=== PATIENT | female | born 1945 | race Caucasian/White ===

== ENCOUNTER 2018-09-14 10:13 | Inpatient (IN) | payer MEDICARE ==
[~2018-09-14] VITALS: Ht 160 cm; Wt 48.2 kg
[2018-09-14] MEDS ORDERED: SODIUM CHLORIDE FLUSH 10ML SYR IVF ONE (11:00)
--- NOTE | 2018-09-14 11:00 | NUR ---
PT PLACED ON HEART MONITOR, BP CUFF, PULSE OX. RHYTHM ST, RATED OF 90S INITIALLY. DURING ASSESSMENT, TWO RUNS OF SVT APPEARING RHYTHM, RATE 130S THEN 160S OBSERVED. PRINTOUT OBTAINED FROM MONITOR AND PROVIDED TO ERP. PT DENIES MED HX, TAKES NO MEDS, STATES SHE HASN'T BEEN ABLE TO GET AN MD TO ACCEPT WITH HER MEDICARE INSURANCE. PT WITH INCREASED SOB FOR "WEEKS OR MORE", WORSENING TODAY WHICH IS WHY SHE CAME TO ED. PT REPORTS OF SOME RECENT SWELLING TO FEET, RASH TO L BREAST. LE EDEMA WORSE ON LEFT 2+PITTING, 1+ ON RIGHT. CLUBBING NOTED TO BILATERAL FINGERS. RASH WITH GROWTHS TO L BREAST. HARD MASS APPROX SIZE OF ORANGE PALPATED WITH REDNESS, BRUISING SURROUNDING. GROWTH FORMATION TO LATERAL INFERIOR ASPECT OF BREAST. PT DENIES PAIN OR DRAINAGE. Addendum: 09/14/18 at 1122 by VISH IV PLACED TO R FOREARM, UNABLE TO DRAW LABS BUT FLUSHES WELL WITH NS.
[2018-09-14 11:41] LABS: BASOPHILS # (AUTO) 0.02 x10^3/uL (0-0.1); BASOPHILS % (AUTO) 0 % (0-1); EOSINOPHILS % (AUTO) 0 % (1-7); LYMPHOCYTES # (AUTO) 0.77 x10^3/uL (1-3.4); LYMPHOCYTES % (AUTO) 12 % (22-44); MD NO; MEAN CORPUSCULAR HGB CONC 31.9 g/dL (32.4-35.8); MEAN CORPUSCULAR VOLUME 100.4 fL (80-100); MEAN PLATELET VOLUME 7.3 fL (7.4-10.4); MONOCYTES % (AUTO) 9 % (2-9); NEUTROPHILS # (AUTO) 5.09 x10^3/uL (1.8-6.8); NEUTROPHILS % (AUTO) 79 % (42-75); PLATELET COUNT 411 x10^3/uL (130-400); RED CELL DISTRIBUTION WIDTH 14.7 % (9.6-15.2)
[2018-09-14 11:52] LABS: INTERNATIONAL NORMALIZED RATIO 1.1 (0.93-1.1); PROTHROMBIN TIME 11.5 Seconds (9.6-11.5)
[2018-09-14 11:53] LABS: ALBUMIN 2.7 g/dL (3.4-5.0); ANION GAP 6 mmol/L (5-15); CALCIUM 8.9 mg/dL (8.5-10.1); CHLORIDE 98 mmol/L (98-107)
[2018-09-14 12:06] LABS: ALANINE AMINOTRANSFERASE 11 U/L (12-78); ALKALINE PHOSPHATASE 105 U/L (45-117); BILIRUBIN,TOTAL 0.7 mg/dL (0.2-1.0); CREATININE 0.75 mg/dL (0.55-1.02); TOTAL PROTEIN 6.7 g/dL (6.4-8.2)
--- NOTE | 2018-09-14 12:10 | NUR ---
PT UP TO BR WITH SBA. ADD ON CTA ORDERED, PT UPDATED.
[2018-09-14 12:24] LABS: FREE T4 (FREE THYROXINE) 1.25 ng/dL (0.76-1.46)
--- NOTE | 2018-09-14 12:40 | NUR ---
PT TO CT
--- NOTE | 2018-09-14 12:51 | NUR ---
PT BACK FROM CT.
[2018-09-14] MEDS ORDERED: OMNIPAQUE 350 MG/ML, 100ML BOTTLE ONE (12:55)
[2018-09-14] MEDS ORDERED: DIGOXIN 0.25 MG/ML, 2ML ONE (13:16)
--- NOTE | 2018-09-14 13:26 | NUR ---
PT CONTINUES TO HAVE INTERMITTENT RUNS OF FAST HEART RATE UP TO 160S AND THEN USUALLY DECREASES WITHIN SECONDS TO ST, RATE 90S. DIGOXIN GIVEN PER ORDER. PT UPDATED ON POC INCLUDING HOLD IN ER WHILE AWAITING TELE BED. PT OFFERED HOSPITAL BED, WHICH SHE ACCEPTS AT THIS TIME. CALL LIGHT WITHIN REACH.
[2018-09-14] MEDS ORDERED: DIGOXIN 0.25 MG/ML, 2ML IVPush ONE (13:30)
[2018-09-14] MEDS ORDERED: GUAIFENESIN/DM 200-20MG, 10ML UDC PO PRN (13:30)
[2018-09-14] MEDS ORDERED: LIDODERM 5% PATCH TD PRN (13:30)
[2018-09-14] MEDS ORDERED: hydrALAzine 20 MG/ML, 1ML IVPush PRN (13:30)
[2018-09-14] MEDS ORDERED: ONDANSETRON ODT 4 MG PO PRN (13:30)
[2018-09-14] MEDS ORDERED: LABETALOL 5MG/ML, 20ML IVPush PRN (13:30)
[2018-09-14] MEDS ORDERED: MAGNESIUM SULFATE PMX 2GM/50ML 50 ML IV ONE (13:30)
[2018-09-14] MEDS ORDERED: DOCUSATE 100 MG CAPSULE PO PRN (13:30)
[2018-09-14] MEDS ORDERED: ACETAMINOPHEN 325 MG TABLET PO PRN (13:30)
[2018-09-14 14:08] LABS: TROPONIN I 0.023 ng/mL (0.000-0.045)
[2018-09-14] MEDS ORDERED: METOPROLOL TARTRATE 50 MG TABLET ONE (14:20)
[2018-09-14 14:21] LABS: HEMOGLOBIN A1C 6.6 % (4.2-6.3)
[2018-09-14] MEDS ORDERED: MAGNESIUM SULFATE PMX 2GM/50ML 50 ML ONE (14:21)
[2018-09-14] MEDS ORDERED: LIDOCAINE-MPF 1%, 5ML ONE ×2 (14:27→14:30)
[2018-09-14] MEDS: METOPROLOL TARTRATE 25 MG TABLET PO SCH ×2 (14:29→21:37)
--- NOTE | 2018-09-14 15:17 | NUR ---
THORACENTESIS AND BREAST BIOPSY AT BS WITH RADIOLOGIST.
--- NOTE | 2018-09-14 15:34 | NUR ---
PT RESTING QUIETLY. CONTINUE TO AWAIT ADMIT BED. CARDIAC MEAL TRAY ORDERED.
[2018-09-14] MEDS: INSULIN LISPRO 100 UNITS/ML, PEN SQ-INSULIN SCH ×2 (16:00→21:00)
--- NOTE | 2018-09-14 16:18 | NUR ---
REPORT TO HÉCTOR NEW, PT READY FOR TRANSPORT TO ICU-CARDIAC TELE OVERFLOW.
[2018-09-14] MEDS: SOTALOL 80MG TABLET PO SCH (17:23)
[2018-09-14 17:53] VITALS: BP 145/85
[2018-09-14 18:02] LABS: AMPHETAMINE SCREEN, URINE Negative (Negative); BARBITURATE SCREEN, URINE Negative (Negative); BENZODIAZEPINE SCREEN, URINE Negative (Negative); CANNABINOID SCREEN, URINE Negative (Negative); COCAINE SCREEN, URINE Negative (Negative); METHADONE SCREEN, URINE Negative (Negative); OPIATE SCREEN, URINE Negative (Negative)
[2018-09-14 19:30] LABS: TROPONIN I < 0.015 ng/mL (0.000-0.045)
[2018-09-14 20:00] VITALS: BP 88/54
[2018-09-15 04:30] LABS: ANION GAP 4 mmol/L (5-15); BASOPHILS # (AUTO) 0.03 x10^3/uL (0-0.1); BASOPHILS % (AUTO) 1 % (0-1); CALCIUM 8.1 mg/dL (8.5-10.1); CHLORIDE 101 mmol/L (98-107); CHOLESTEROL, TOTAL 141 mg/dL (140-239); CREATININE 0.64 mg/dL (0.55-1.02); EOSINOPHILS # (AUTO) 0.01 x10^3/uL (0-0.4); EOSINOPHILS % (AUTO) 0 % (1-7); LYMPHOCYTES # (AUTO) 0.88 x10^3/uL (1-3.4); LYMPHOCYTES % (AUTO) 16 % (22-44); MD NO; MEAN CORPUSCULAR HEMOGLOBIN 32.4 pg (27.0-34.8); MEAN CORPUSCULAR HGB CONC 32.2 g/dL (32.4-35.8); MEAN CORPUSCULAR VOLUME 100.6 fL (80-100); MEAN PLATELET VOLUME 7.7 fL (7.4-10.4); MONOCYTES # (AUTO) 0.73 x10^3/uL (0.2-0.8); MONOCYTES % (AUTO) 13 % (2-9); NEUTROPHILS # (AUTO) 4.02 x10^3/uL (1.8-6.8); NEUTROPHILS % (AUTO) 71 % (42-75); PLATELET COUNT 369 x10^3/uL (130-400); RED BLOOD COUNT 4.34 x10^6/uL (3.82-5.3); RED CELL DISTRIBUTION WIDTH 14.7 % (9.6-15.2); TRIGLYCERIDES 95 mg/dL (50-200); VLDL CHOLESTEROL 19 mg/dL (0-25)
[2018-09-15 04:33] LABS: CHOL/HDL RATIO 2.2; HDL CHOL % 45 % (28-40); HDL CHOLESTEROL (DIRECT) 64 mg/dL (40-60); LDL CHOLESTEROL,CALCULATED 58 mg/dL (54-169); LDL/HDL RATIO 0.9 (0.5-3.0)
[2018-09-15 05:00] VITALS: BP 110/70
[2018-09-15] MEDS: METOPROLOL TARTRATE 25 MG TABLET PO SCH ×3 (05:30→20:58)
[2018-09-15] MEDS: INSULIN LISPRO 100 UNITS/ML, PEN SQ-INSULIN SCH ×4 (06:18→20:58)
[2018-09-15] MEDS: SOTALOL 80MG TABLET PO SCH ×2 (08:50→17:30)
[2018-09-15 09:29] VITALS: BP 106/53
[2018-09-15 16:27] VITALS: BP 107/69
[2018-09-15] MEDS: ENOXAPARIN 40 MG/0.4 ML SQ SCH (17:30)
[2018-09-15 20:09] VITALS: BP 101/56
[2018-09-16 01:59] VITALS: BP 102/61
[2018-09-16 04:43] LABS: BASOPHILS # (AUTO) 0.05 x10^3/uL (0-0.1); BASOPHILS % (AUTO) 1 % (0-1); EOSINOPHILS # (AUTO) 0.02 x10^3/uL (0-0.4); EOSINOPHILS % (AUTO) 0 % (1-7); LYMPHOCYTES # (AUTO) 1.05 x10^3/uL (1-3.4); LYMPHOCYTES % (AUTO) 16 % (22-44); MD NO; MEAN CORPUSCULAR HEMOGLOBIN 32.6 pg (27.0-34.8); MEAN CORPUSCULAR HGB CONC 32.2 g/dL (32.4-35.8); MEAN CORPUSCULAR VOLUME 101.3 fL (80-100); MEAN PLATELET VOLUME 7.6 fL (7.4-10.4); MONOCYTES # (AUTO) 0.69 x10^3/uL (0.2-0.8); MONOCYTES % (AUTO) 10 % (2-9); NEUTROPHILS # (AUTO) 4.96 x10^3/uL (1.8-6.8); NEUTROPHILS % (AUTO) 73 % (42-75); PLATELET COUNT 345 x10^3/uL (130-400); RED BLOOD COUNT 4.26 x10^6/uL (3.82-5.3); RED CELL DISTRIBUTION WIDTH 14.9 % (9.6-15.2)
[2018-09-16 04:54] LABS: ALANINE AMINOTRANSFERASE 9 U/L (12-78); ALBUMIN 2.3 g/dL (3.4-5.0); ANION GAP 3 mmol/L (5-15); CALCIUM 8.2 mg/dL (8.5-10.1); CHLORIDE 101 mmol/L (98-107); CREATININE 0.71 mg/dL (0.55-1.02)
[2018-09-16 04:56] LABS: ALKALINE PHOSPHATASE 84 U/L (45-117); BILIRUBIN,TOTAL 0.3 mg/dL (0.2-1.0); TOTAL PROTEIN 5.9 g/dL (6.4-8.2)
[2018-09-16] MEDS: SOTALOL 80MG TABLET PO SCH ×2 (05:21→17:30)
[2018-09-16] MEDS: INSULIN LISPRO 100 UNITS/ML, PEN SQ-INSULIN SCH ×4 (08:38→21:00)
[2018-09-16 08:46] VITALS: BP 102/58
[2018-09-16] MEDS: METOPROLOL TARTRATE 25 MG TABLET PO SCH ×2 (09:37→21:02)
[2018-09-16 13:21] VITALS: BP 119/74
[2018-09-16] MEDS: ENOXAPARIN 40 MG/0.4 ML SQ SCH (17:30)
[2018-09-16 19:37] VITALS: BP 115/68
[2018-09-17 00:55] VITALS: BP 107/72
[2018-09-17] MEDS: SOTALOL 80MG TABLET PO SCH ×2 (05:22→17:33)
[2018-09-17 05:27] LABS: BASOPHILS # (AUTO) 0.04 x10^3/uL (0-0.1); BASOPHILS % (AUTO) 1 % (0-1); EOSINOPHILS # (AUTO) 0.02 x10^3/uL (0-0.4); EOSINOPHILS % (AUTO) 0 % (1-7); LYMPHOCYTES # (AUTO) 1.12 x10^3/uL (1-3.4); LYMPHOCYTES % (AUTO) 17 % (22-44); MD NO; MEAN CORPUSCULAR HEMOGLOBIN 32.4 pg (27.0-34.8); MEAN CORPUSCULAR HGB CONC 32.3 g/dL (32.4-35.8); MEAN CORPUSCULAR VOLUME 100.3 fL (80-100); MEAN PLATELET VOLUME 7.7 fL (7.4-10.4); MONOCYTES # (AUTO) 0.67 x10^3/uL (0.2-0.8); MONOCYTES % (AUTO) 10 % (2-9); NEUTROPHILS # (AUTO) 4.61 x10^3/uL (1.8-6.8); NEUTROPHILS % (AUTO) 71 % (42-75); PLATELET COUNT 330 x10^3/uL (130-400); RED BLOOD COUNT 4.03 x10^6/uL (3.82-5.3); RED CELL DISTRIBUTION WIDTH 14.8 % (9.6-15.2)
[2018-09-17 05:34] LABS: ANION GAP 4 mmol/L (5-15); CALCIUM 8.4 mg/dL (8.5-10.1); CHLORIDE 104 mmol/L (98-107)
[2018-09-17 05:36] LABS: CREATININE 0.56 mg/dL (0.55-1.02)
[2018-09-17] MEDS: INSULIN LISPRO 100 UNITS/ML, PEN SQ-INSULIN SCH ×4 (05:55→21:54)
[2018-09-17 09:37] VITALS: BP 96/64
[2018-09-17] MEDS: METOPROLOL TARTRATE 25 MG TABLET PO SCH (09:39)
[2018-09-17 15:44] VITALS: BP 128/76
[2018-09-17] MEDS: ENOXAPARIN 40 MG/0.4 ML SQ SCH (17:34)
[2018-09-17 20:16] VITALS: BP 114/81
[2018-09-17] MEDS: GUAIFENESIN ER 600 MG TABLET PO SCH (21:52)
[2018-09-18] MEDS: ALBUTEROL/IPRATROPIUM 2.5MG/0.5MG, 3 ML NPPB PRN ×2 (00:52→20:49)
[2018-09-18 04:50] VITALS: BP 109/70
[2018-09-18] MEDS: SOTALOL 80MG TABLET PO SCH ×2 (06:46→17:28)
[2018-09-18] MEDS: INSULIN LISPRO 100 UNITS/ML, PEN SQ-INSULIN SCH ×4 (08:15→20:24)
[2018-09-18] MEDS: GUAIFENESIN ER 600 MG TABLET PO SCH ×2 (08:20→20:22)
[2018-09-18 08:27] VITALS: BP 110/81
[2018-09-18 13:48] VITALS: BP 125/78
[2018-09-18] MEDS: ENOXAPARIN 40 MG/0.4 ML SQ SCH (17:28)
[2018-09-18 19:11] VITALS: BP 126/75
[2018-09-19 01:27] VITALS: BP 103/72
[2018-09-19] MEDS: SOTALOL 80MG TABLET PO SCH ×2 (06:04→20:39)
[2018-09-19 06:48] VITALS: BP 108/72
[2018-09-19] MEDS: INSULIN LISPRO 100 UNITS/ML, PEN SQ-INSULIN SCH ×4 (08:30→21:27)
[2018-09-19] MEDS: GUAIFENESIN ER 600 MG TABLET PO SCH ×2 (09:24→20:39)
[2018-09-19] MEDS: ALBUTEROL/IPRATROPIUM 2.5MG/0.5MG, 3 ML NPPB PRN (10:30)
[2018-09-19 13:36] VITALS: BP 109/70
[2018-09-19] MEDS ORDERED: METOPROLOL TARTRATE 25 MG TABLET PO SCH (17:00)
[2018-09-19 18:11] VITALS: BP 126/79
[2018-09-19] MEDS: ENOXAPARIN 40 MG/0.4 ML SQ SCH (18:12)
[2018-09-19] MEDS: METOPROLOL TARTRATE 25 MG TABLET PO SCH ×2 (18:12→18:13)
[2018-09-19 19:17] VITALS: BP 112/72
[2018-09-19 20:35] VITALS: BP 105/65
[2018-09-20 00:48] VITALS: BP 114/74
[2018-09-20 05:07] VITALS: BP 111/71
[2018-09-20] MEDS: METOPROLOL TARTRATE 25 MG TABLET PO SCH (05:08)
[2018-09-20 06:17] VITALS: BP 118/75
[2018-09-20] MEDS: SOTALOL 80MG TABLET PO SCH (06:18)
[2018-09-20 07:35] VITALS: BP 120/84
[2018-09-20] MEDS: INSULIN LISPRO 100 UNITS/ML, PEN SQ-INSULIN SCH ×2 (07:49→11:23)
[2018-09-20] MEDS: GUAIFENESIN ER 600 MG TABLET PO SCH (10:40)
[2018-09-20] MEDS ORDERED: DOCU-131 PO (14:44)
[2018-09-20] MEDS ORDERED: ONDA4TAB13 PO (14:44)
[2018-09-20] MEDS ORDERED: METO25TA35 PO (14:44)
[2018-09-20] MEDS ORDERED: SOTA80TA18 PO (14:44)
[2018-09-20] MEDS ORDERED: ACET325T14 PO (14:44)
[2018-09-20] MEDS ORDERED: GUAI600T31 PO (14:44)
[2018-09-20 15:02] VITALS: BP 129/83
== END 2018-09-20 15:48 | disposition hospice, home (50) | DRG 579 ==
LOC: ED 12:45 → EDIP 13:27 → ICU 16:37 → 5SO 09-16 15:22
PROVIDERS: ADMIT Internal Medicine; ATTEND Internal Medicine
PROC: 0HBU3ZX Excision of Left Breast, Percutaneous Approach, Diagnostic (ICD-10-PCS; principal; 2018-09-14)
PROC: 07B63ZX Excision of Left Axillary Lymphatic, Percutaneous Approach, Diagnostic (ICD-10-PCS; 2018-09-14)
PROC: 0W993ZZ Drainage of Right Pleural Cavity, Percutaneous Approach (ICD-10-PCS; 2018-09-14)
DX: C50.912 Malignant neoplasm of unspecified site of left female breast (principal); J96.01 Acute respiratory failure with hypoxia; J90 Pleural effusion, not elsewhere classified; E44.0 Moderate protein-calorie malnutrition; D68.69 Other thrombophilia; J98.11 Atelectasis; R64 Cachexia; Z68.1 Body mass index [BMI] 19.9 or less, adult; E87.1 Hypo-osmolality and hyponatremia; C77.3 Secondary and unspecified malignant neoplasm of axilla and upper limb lymph nodes; I48.92 Unspecified atrial flutter; I48.91 Unspecified atrial fibrillation; D75.89 Other specified diseases of blood and blood-forming organs; E03.9 Hypothyroidism, unspecified; F17.210 Nicotine dependence, cigarettes, uncomplicated; J44.9 Chronic obstructive pulmonary disease, unspecified; Z66 Do not resuscitate; E11.65 Type 2 diabetes mellitus with hyperglycemia; Z17.0 Estrogen receptor positive status [ER+]
CPT/HCPCS: 32555; 36415; 71045; 71275; 76642; 76942; 80048; 80053; 80061; 80307; 82042; 82607; 82945; 82962; 83036; 83615; 83735; 83880; 83986; 84100; 84157; 84439; 84443; 84484; 84560; 85025; 85610; 85730; 87070; 87075; 87081; 87102; 87205; 88112; 88305; 88360; 89051; 93005; 93306; 93970; 94640; 96365; 96375; G0378; J1650; J7620; Q9967; J1160; J1815; J3475